=== PATIENT | male | born 1990 | race African-American/Black ===

== ENCOUNTER 2021-05-07 05:29 | Day surgery (SDC) | payer OTHER ==
[2021-05-05 11:13] VITALS: BMI 22.8
[2021-05-07] MEDS ORDERED: LIDOCAINE HCL 1%, 10 MG/ML (20ML VIAL) ONE (13:34)
[2021-05-07] MEDS ORDERED: BUPIVACAINE HCL/PF 0.5% (5MG/ML) 10 ML VIAL ONE ×2 (13:34→16:14)
[2021-05-07] MEDS ORDERED: LIDOCAINE HCL/PF 2% SDV 5ML VIAL ONE (15:59)
[2021-05-07] MEDS ORDERED: PROPOFOL 20 ML ONE (15:59)
[2021-05-07] MEDS ORDERED: MIDAZOLAM HCL 2 MG/2 ML SINGLE DOSE VIAL ONE (16:00)
[2021-05-07] MEDS ORDERED: ROCURONIUM BROMIDE 50 MG/5 ML SYRINGE ONE (16:01)
[2021-05-07] MEDS ORDERED: ceFAZolin SODIUM 1 GM VIAL ONE (16:19)
[2021-05-07] MEDS ORDERED: ceFAZolin SODIUM 1 GM VIAL IVPB ONE (16:21)
[2021-05-07] MEDS ORDERED: BUPIVACAINE HCL/PF 0.5% (5 MG/ML) 30 ML VIAL IJ ONE (16:28)
[2021-05-07] MEDS ORDERED: DESFLURANE GAS 240 ML BOTTLE IH ONE (16:30)
[2021-05-07] MEDS ORDERED: NEOSTIGMINE METHYLSULFATE 0.5 MG/ML - 10 ML MDV ONE (17:19)
[2021-05-07] MEDS ORDERED: GLYCOPYRROLATE 0.2 MG/1 ML VIAL ONE (17:19)
[2021-05-07] MEDS ORDERED: oxyCODONE HCL 5 MG TABLET PO PRN (17:43)
[2021-05-07] MEDS ORDERED: SODIUM CHLORIDE 1,000 ML IV SCH (17:45)
[2021-05-07] MEDS ORDERED: ONDANSETRON 4 MG/2 ML VIAL ONE (17:56)
[2021-05-07] MEDS: ONDANSETRON 4 MG/2 ML VIAL IVPUSH PRN ×2 (17:59→20:27)
[2021-05-07] MEDS ORDERED: oxyCODONE HCL 5 MG TABLET ONE (20:17)
[2021-05-07] MEDS ORDERED: ONDANSETRON *ODT* 4 MG TABLET ONE (20:27)
[2021-05-07 20:39] VITALS: TEMP 98
[2021-05-07 21:03] VITALS: BP 152/84; PULSE 70
== END 2021-05-07 20:58 | disposition home or self-care (01) ==
LOC: JASU-SURG 05:29
PROVIDERS: ATTEND Surgery
PROC: B518ZZA Fluoroscopy of Superior Vena Cava, Guidance (ICD-10-PCS; 2021-05-07)
PROC: 0WHG43Z Insertion of Infusion Device into Peritoneal Cavity, Percutaneous Endoscopic Approach (ICD-10-PCS; principal; 2021-05-07 16:00)
PROC: 02HV33Z Insertion of Infusion Device into Superior Vena Cava, Percutaneous Approach (ICD-10-PCS; 2021-05-07 16:00)
DX: I12.0 Hypertensive chronic kidney disease with stage 5 chronic kidney disease or end stage renal disease (principal); N18.6 End stage renal disease; Z99.2 Dependence on renal dialysis
CPT/HCPCS: 71045-TC-FY; 76000-TC-FY; 94760; J1644; Q0162